=== PATIENT | male | born 1990 | race Caucasian/White ===

== ENCOUNTER 2024-09-03 19:17 | Emergency (ER) | payer OTHER, SELFPAY ==
--- OUTSIDE RECORDS SUMMARY | 2024-09-03 19:26 | XMS_ITS | Referral Summary ---
Author Organization [facility] [place] [facility] lto Address [address] [place] [address] Care Team Providers Care Technical Associate Name Role Phone Jhony Ledesma MD Primary Care Provi rosalina Encounters Date Type Department Care Team Description 08/26/2024 Telephone [facility] Primary Care at [address] [phone] Jhony Ledesma MD Authorization/Certif ication 08/26/2024 11:45 AM CDT Office Visit [facility] Primary Care at [address] [phone] Jhony Ledesma MD Morbid obesity with BMI of 40.0-44.9, adult (HCC) (Primary Dx); Obstructive sleep apnea 06/14/2024 10:00 AM FLEECE TIER Office Visit [facility] Sleep Medicine at [address] [place] [phone] Jelly Samano MD Obstructive sleep apnea (Primary Dx); Hypersomnia; Obesity, unspecified class, unspecified obesity type, unspecified whether serious comorbidity present from Last 3 Months Allergies Active Allergy Reactions Criticality Noted Date Comments Amoxicillin-Pot Clavulanate Stomach upset Low 01/16/2022 Clavulanic Acid Unknown 09/16/2023 House Dust Other (See comments),Swollen tongue High 09/16/2023 Lactose-Reduced Food Swelling Medium 09/16/2023 Throat tightness bubblegut Wood Betony Swollen tongue,Other (See comments) High 09/16/2023 Medications ibuprofen (ADVIL,MOTRIN) 600 mg tablet Take 1 tablet (600 mg total) by mouth every 6 (six) hours as needed for pain 30 tablet 4 Active diclofenac sodium (VOLTAREN) 1 % gel 4 Active escitalopram (LEXAPRO) 10 mg tablet TAKE ONE-HALF TABLET BY MOUTH ONCE A DAY FOR 7 DAYS, THEN TAKE ONE TABLET ONCE A DAY FOR 23 DAYS FOR PTSD 4 09/17/19 25 Active albuterol HFA (PROVENTIL HFA,VENTOLIN HFA,PROAIR HFA) 90 mcg/actuation inhalerIndicatio ns:Wheezing Inhale 2 puffs every 6 (six) hours as needed for wheezing for up to 7 days 1 each 4 4 Active fluticasone propionate (FLONASE) 50 mcg/actuation nasal spray INSTILL 2 SPRAYS IN NOSTRIL(S) ONCE A DAY NEEDED (MUST BE USED DIRECTED FOR MINIMUM OF 21 DAYS TO PROVIDE ADEQUATE BENEFITS) 4 Active cetirizine (ZyrTEC) 10 mg tablet Take 1 tablet (10 mg total) by mouth daily [address] (PROTONIX) 40 mg EC tabletIndication s:Gastroesophage al reflux disease without esophagitis TAKE 1 TABLET(40 MG) BY MOUTH DAILY 90 tablet 3 5 Active tirzepatide, weight loss, (Zepbound) 2.5 mg/0.5 mL pen injectorIndicati ons:Morbid obesity with BMI of 40.0-44.9, adult (HCC) Inject 0.5 mL (2.5 mg total) under the skin every 7 days for 28 days 2 mL 5 09/24/19 25 Active benzonatate (TESSALON) 100 mg capsuleIndicatio ns:Cough Take 1 capsule (100 mg total) by mouth 3 (three) times a day as needed for cough 42 capsule 5 08/25/19 25 Discontinu ed(Therapy completed) Active Problems Problem Noted Date Diagnosed Date Contact with and (suspected) exposure to other hazardous substances 08/26/2024 Pain in unspecified hip 08/26/2024 Overview (08/26/2024): Jul 06, 2024 Entered By: SOHEILA HASTINGS Comment: low back pain and left hip pain Diarrhea 08/26/2024 Overview (08/26/2024): Jul 06, 2024 Entered By: SOHEILA HASTINGS Comment: occurs daily Contact with and (suspected) exposure to other hazardous substances 08/26/2024 Morbid obesity with BMI of 40.0-44.9, adult 08/12 Assessment & Plan (08/26/2024 12:18 PM CDT): Orders: tirzepatide, weight loss, (Zepbound) 2.5 mg/0.5 mL pen injector; Inject 0.5 mL (2.5 mg total) under the skin every 7 days for 28 days Obstructive sleep apnea 05/27/2024 Assessment & Plan (08/26/2024 12:18 PM CDT): Abdominal bloating 02/10/2024 Erectile dysfunction 01/26/2024 Cognitive communication deficit 01/26/2024 Carpal tunnel syndrome 01/26/2024 Attention disturbance 01/26/2024 Anxiety 01/26/2024 Allergic rhinitis 01/26/2024 Vitamin D deficiency 01/26/2024 Posttraumatic stress disorder 01/26/2024 Panic attack 01/26/2024 Insomnia 01/26/2024 Gastroesophageal reflux disease 01/26/2024 Exposure to potentially hazardous substance 01/12 Overview (01/26/2024): August 27, 2023 Entered By: RADHA GARCIA Comment: Entered automatically through MAX Problem List documentation program Exercise induced bronchospasm 01/26/2024 Elevated liver enzymes 01/26/2024 Abdominal pain 01/26/2024 Other intervertebral disc displacement, lumbosac ral region 04/28/2018 Other chronic pain 04/28/2018 Regular astigmatism, bilateral 12/01/2017 Myopia, bilateral 12/01/2017 Degeneration of intervertebral disc of lumbosacr al region 11/06/2017 Pain disorder with related psychological factors 11/06/2017 Low back pain 11/06/2017 Resolved Problems Problem Noted Date Diagnosed Date Resolved Date Headache 01/26/2024 01/26/2024 Abnormal lung sounds 01/26/2024 024 Obesity (BMI 30-39.9) 01/26/20242024 Immunizations Immunization Administration Dates Next Due Adenovirus 05/30/2012 Anthrax 06/05/2018,11/10/2013,08/27/2013 DTP 10/12/1992, 2,09/16/1991,04/29 DTaP 12/02/1996 Hep A, Adult 12/16/2012,05/30/2012 Hep B, Adolescent or Pediatric 12/27/2004,2001,12/24/2001 HiB 08/17/1992, 2,09/16/1991,04/29 IPV 05/30/2012 Influenza LAIV (Nasal) 01/23/2023(Deferr ed: Patient Refused),12/30/2012 Influenza, Quadrivalent, Spl it, Preservative Free, Intramuscular 02/18/2018,02/13/2017 Influenza, Trivalent, IM (MDV) 01/18/2014 Influenza, Trivalent, Preser vative Free, Intramuscular 01/26/2016,01/16/2015,08/01/2012 Influenza, Unspecified 01/22/2024(Deferr ed: Patient Refused),01/22/2024(Deferred: Patient Refused),01/29/2023(Deferred: Patient Refused) MMR 12/02/1996,08/17/1992 Meningococcal C Conjugate 11/20/2006 Meningococcal MCV4P (Menactra) 05/30/2012 OPV 12/02/1996, 3,11/18/1991,09/15,04/29/1991 Tdap 08/11/2023, 4,05/30/2012,11/20 Typhoid Inactivated 06/05/2018,08/27/2013 Social History Tobacco Use Types Packs/Day Years Used Date Smoking Tobacco: Former Cigarettes Vaping Smokeless Tobacco: Never Tobacco Cessation:Counseling Given: Not Answered PHQ-2 Answer Date Recorded PHQ-2 Total Score (If total score is 3 or more points, staff should administer the PHQ-9) 0 08/26/2024 Personal Safety Answer Date Recorded Have you ever been in or are you currently in a harmful physical or emotional relationship or is someone making you feel afraid or unsafe? 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 Gender Identity Not on file Sexual Orientation Not on file Last Filed Vital Signs Vital Sign Reading Time Taken Comments Blood Pressure 98/60 08/26/2024 11:38 AM CDT Pulse 105 08/26/2024 11:38 AM CDT Temperature 37 C (98.6 F) 08/26/2024 11:38 AM CDT Respiratory Rate 18 04/23/2024 2:08 PM FLEECE TIER Oxygen Saturation 94% 08/26/2024 11: 38 AM CDT Inhaled Oxygen Concentration - - Weight 110.9 kg (244 lb 6.4 oz) 025 11:38 AM CDT Height 165.1 cm (5' 5 ) 08/26/2024 11:3 8 AM CDT Body Mass Index 40.67 08/26/2024 11:38 AM CDT Plan of Treatment Not on file Insurance [facility] Care Teams Technical Associate Relationship Specialty Start Date End Date Jhony Ledesma MD [address] [place] [address] PCP - General Family Practice 01/26/24
--- OUTSIDE RECORDS SUMMARY | 2024-09-03 19:26 | XMS_ITS | Encounter Summary ---
Author Organization [facility] Healthcare Address [address] [place] [address] Care Team Providers Care Capacity Management Specialist Name Role Phone Jhony Ledesma MD Primary Care Provi rosalina Reason for Visit * Reason Onset Date Comments Authorization/Certification 08/26/2024 Encounter Details Date Type Department Care Team (Late st Contact Info) Description 08/26/2024 Telephone [facility] Primary Care at [address] [place] [phone] Jhony Ledesma MD [address] [place] [id number] Authorization/Certifi cation Social History Tobacco Use Types Packs/Day Years Used Date Smoking Tobacco: Former Cigarettes Vaping Smokeless Tobacco: Never PHQ-2 Answer Date Recorded PHQ-2 Total Score [...] on file 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 * Telephone Encounter - Sarah Barrera - 08/26/2024 3:11 PM CDT Prior Authorization for Medication Medication(s) Name/Dose: tirzepatide, weight loss, (Zepbound) 2.5 mg/0.5 mL pen injector Is the patient out of the medication? First fill Pharmacy that medication was sent to: [facility] #[id number] Is insurance in chart accurate? Yes Additional Comments: Patient states his pharmacy is faxing a form for PA. Does message need to be routed? Yes-Action Needed documented in this encounter Plan of Treatment Not on file documented as of this encounter Visit Diagnoses Not on filedocumented in this encounter Care Teams Capacity Management Specialist Relationship Specialty Start Date End Date Jhony Ledesma MD [address] [facility] [address] [place] [address] PCP - General Family Practice 01/26/24 documented as of this encounter
--- OUTSIDE RECORDS SUMMARY | 2024-09-03 19:26 | XMS_ITS | Clinical Summary ---
Author Organization [facility] [place] [address] [facility] lto Address [address] [place] [address] Care Team Providers Care Sugar Cane Grower Name Role Phone Jhony Ledesma MD Primary Care Provi rosalina Allergies Active Allergy Reactions Criticality Noted Date [...] sounds 01/26/2024 024 Obesity (BMI 30-39.9) 01/26/20242024 Encounters Date Type Department Care Team Description 08/26/2024 11:45 AM CDT Office Visit [facility] Primary Care at [address] [phone] Jhony Ledesma MD Morbid obesity with BMI of 40.0-44.9, adult (HCC) (Primary Dx); Obstructive sleep apnea 08/26/2024 Telephone [facility] Primary Care at [address] [phone] Jhony Ledesma MD Authorization/Certif ication 06/14/2024 10:00 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 Office Visit [facility] Sleep Medicine at [address] [place] [address] Jelly Samano MD Obstructive sleep apnea (Primary Dx); Hypersomnia; Obesity, unspecified class, unspecified obesity type, unspecified whether serious comorbidity present from Last 3 Months Immunizations Immunization Administration Dates Next Due Adenovirus [...] on file Legal 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 Gender Identity Not on file Sexual Orientation Not on file Obstetrics History Last Filed Vital Signs Vital Sign Reading Time Taken Comments Blood Pressure 98/60 08/26/2024 11:38 AM CDT Pulse 105 08/26/2024 11:38 AM CDT Temperature 37 C (98.6 F) 08/26/2024 11:38 AM CDT Respiratory Rate 18 04/23/2024 2:08 PM CHAPLAIN RESIDENT Oxygen Saturation 94% 08/26/2024 11: 38 AM CDT Inhaled Oxygen Concentration - - Weight 110.9 kg (244 lb 6.4 oz) 025 11:38 AM CDT Height 165.1 cm (5' 5 ) 08/26/2024 11:3 8 AM CDT Body Mass Index 40.67 08/26/2024 11:38 AM CDT Plan of Treatment Health Maintenance Due Date Last Done Comments Hepatitis C Screening 1990 Regular Well Visit/Exam 18-64 2008 Varicella Vaccines (1 of 2 - 13+ 2-dose series) 01/27/2013 Covid-19 Vaccine ( season) 2023 06/05/2021, 07/01/2020 Influenza Vaccine (Season Ended) 2024 02/18/2018, 02/13/2017, 01/26/2016, Additional history exists Depression Screening 08/26/2025 08/26/2024, 01/26/20 24 DTaP/Tdap/Td Vaccine (10 - Td or Tdap) 08/10/2033 08/11/2023, 08/07/2023, 05/30/2012, Additional history exists Hepatitis B Screening Completed 12/27/2004 , 02/05/2002, 12/24/2001 HPV Vaccines Aged Out No longer eligi ble based on patient's age to complete this topic Pneumococcal vaccine <65 Aged Out No longer eligible based on patient's age to complete this topic Insurance [facility] Care Teams Sugar Cane Grower Relationship Specialty Start Date End Date Jhony Ledesma MD [address] [facility] [address] [place] [address] PCP - General Family Practice 01/26/24
[2024-09-03 19:27] VITALS: BP 138/75; PULSE 95; RESP 16; TEMP 36.6; O2SAT 98
--- NOTE | 2024-09-03 19:28 | ED_ITS ---
HPI - Nausea/Vomiting/Diarrhea General Chief complaint: Nausea/Vomiting/Diarrhea Stated complaint: Diarrhea, Nausea Time Seen by Provider: 09/03/24 19:31 Source: patient and RN notes reviewed Mode of arrival: ambulatory Limitations: no limitations History of Present Illness HPI Narrative: 33 y/o male presented for c/o nausea, bloating and diarrhea. Onset today 1300. Symptoms started after eating, endorses concern for under cooked chicken made by his daughter. Pt denies abdominal pain, vomiting, fever, hematochezia, or melena. Started Zepbound 3 days ago. Review of Systems Review of Systems: CONSTITUTIONAL: Denies body aches, fever, chills ENT: Denies rhinorrhea, congestion CARDIOVASCULAR: Denies chest pain, palpitations, or edema. RESPIRATORY: Denies cough or dyspnea. GASTROINTESTINAL: Endorses diarrhea. Denies abdominal pain, vomiting,hematochezia, melena, hematemesis GENITOURINARY: Denies dysuria, hematuria, or CVA tenderness. SKIN: Denies rash, itching, or wounds. MUSCULOSKELETAL: Denies back pain, joint pain, or myalgia. NEUROLOGIC: Denies headache, numbness, tingling, or weakness. All systems reviewed & are unremarkable except as noted in HPI and below PMFSH Comments At time of signature, I have reviewed and agree with nursing past medical, surgical, social and family history unless otherwise noted. Please see nursing chart for further information. There is no relevant family history pertinent to the presenting complaint Exam Narrative: GENERAL: Well-appearing, and in no acute distress. EYES: EOMI. Conjunctivae normal. ENT: Mucous membranes pink and moist. CHEST: No respiratory distress. Clear to auscultation. HEART: Regular rate and rhythm. No murmur appreciated. Normal peripheral pulses. ABDOMEN: abd soft, nondistended, normal active bowel sounds. Nontender abdomen; No guarding, rebound tenderness, asymmetry SKIN: Warm, dry, no rash. Capillary refill normal. Normal skin turgor. NEURO: No focal deficits. Alert and oriented x3. PSYCH: Normal affect. Course Course Emergency Course: Patient is aware of diagnosis, understands and agrees to treatment plan. Anticipatory guidance given. Patient agrees to follow-up as directed and is aware of reasons to seek care at the emergency department. Portions of this record may have been created with voice recognition software Level of Care: Express Care Visit MDM - Nausea/Vomiting/Diarrhea MDM Narrative Medical decision making narrative: patient presenting with nausea and diarrhea. Onset today. Patient is agreeable to try ondansetron and Imodium if needed. Discussed physical exam findings. Advised supportive measures and signs/symptoms to go to the ER. Pt is appropriate for outpt treatment and f/u. Differential Diagnosis Differential diagnosis: Likely traveler's diarrhea, food poisoning, gastroenteritis, clostridium difficile infection, drug-induced nausea and vomiting and dehydration Discharge Plan Discharge Clinical Impression: Diarrhea Patient Disposition: Home Condition: Stable Instructions: Antibiotic Form Additional Instructions: Stay hydrated. Take small sips of fluid containing electrolytes frequently. Clear liquids (broth, jello, tea, sprite, pedialyte) [place] foods (bananas, rice, applesauce, toast, crackers) Avoid fatty, greasy, fried or spicy foods. Limit dairy until symptoms are improved. [id number] Imodium according to package directions Recommend probiotic such as align or lactobacillus to help with symptoms. Ondansetron as needed for nausea You should go to the hospital if you experience persistent nausea and vomiting that does not resolve and does not allow you to tolerate any food or fluids, fevers, increasing abdominal pain, persistent diarrhea, dizziness, fainting, or for any other concerns. Follow up with primary care provider in 3 days. Patient Language: Mongolian Prescriptions: New ondansetron 4 mg tablet,disintegrating 4 mg PO Q8H PRN (Reason: nausea and vomiting) Qty: 20 0RF Follow-up/Referrals: PHYSICIAN NOT ON STAFF,NONSTAFF [Primary Care Provider] - Stand Alone Forms: Work/School Release IP Time of Disposition: 19:38
== END 2024-09-03 19:41 | disposition home or self-care (01) ==
PROVIDERS: Emergency Provider Nurse Practitioner Family
DX: R19.7 Diarrhea, unspecified (principal)
CPT/HCPCS: 99203; G0463